=== PATIENT | female | born 1955 | race Asian ===

== ENCOUNTER 2016-07-22 07:44 | Day surgery (SDC) | payer OTHER ==
[~2016-07-22] VITALS: Ht 160 cm; Wt 91.0 kg
[2016-07-22 08:32] VITALS: Ht 160 cm; Wt 91.0 kg
[2016-07-22] MEDS ORDERED: DIABETES MED (08:45)
[2016-07-22] MEDS ORDERED: LOSA25TA2 PO (08:45)
[2016-07-22 09:07] VITALS: BP 131/73; PULSE 56; RESP 18
[2016-07-22] MEDS ORDERED: PROPOFOL 40 ML ONE (09:10)
[2016-07-22] MEDS ORDERED: LIDOCAINE 2% (SDV) 5 ML INJ ONE (09:10)
[2016-07-22 10:44] VITALS: BP 167/85; PULSE 53; RESP 18
--- NOTE | 2016-07-22 11:55 | GILP ---
DATE OF PROCEDURE: 07/22/2016 NAME OF PROCEDURE: Colonoscopy, biopsy, polypectomy and clipping. SURGEON: Neetu Trimble MD PREOPERATIVE DIAGNOSIS: Screening colonoscopy. POSTOPERATIVE DIAGNOSES: 1. Colonoscopy all the way to the cecum. 2. Large sigmoid colon polyp at 15 cm from the anus was removed using the snare and electrocautery. 3. Clipping of the polypectomy site was done to prevent bleeding. 4. Small rectal polyp was removed using the biopsy forceps. 5. Internal hemorrhoids. INDICATION FOR THE PROCEDURE: Ms. Alee Encarnacion is a 61-year-old female patient who was scheduled for [facility] colonoscopy. The procedure and possible complications were well explained to the patient, she understood and cons ented to the procedure. DESCRIPTION OF PROCEDURE: Under the influence of anesthesia, the colonoscope was carefully introduc ed in the rectum and under direct vision, it was advanced all the way to the cecum. FINDINGS: The patient had a large sigmoid colon polyp at 15 cm from the anus and it was removed usi ng the snare and electrocautery. Clipping of the polypectomy site was done to prevent bleeding. Th e patient was noted to have a small polyp in the rectum and it was removed using the biopsy forceps. She had internal hemorrhoids. She tolerated the procedure very well and there was no complication from the procedure. At the end of the procedure, she was awake with stable vital signs and she was discharged home to the care of h er family. IMPRESSION: Please see postoperative diagnosis. PLAN: 1. Await histopathology report 2. The timing for the next colonoscopy will be decided after reviewing the biopsy report. Dictated By: NEETU GUERRA/MAYKEL Conf#: [id number] DID#: [id number] CC: NEETU TRIMBLE MD;*EndCC*
== END 2016-07-22 11:16 | disposition home or self-care (01) ==
LOC: GIL 07:44
PROVIDERS: ATTEND Internal Medicine Gastroenterology
DX: Z12.11 Encounter for screening for malignant neoplasm of colon (principal); D12.5 Benign neoplasm of sigmoid colon; K62.1 Rectal polyp; K64.8 Other hemorrhoids; E11.9 Type 2 diabetes mellitus without complications; I10 Essential (primary) hypertension; E66.01 Morbid (severe) obesity due to excess calories; Z68.35 Body mass index [BMI] 35.0-35.9, adult
CPT/HCPCS: 45385; 82962; 88305; Z7610